=== PATIENT | male | born 1985 | race Caucasian/White ===

== ENCOUNTER 2018-02-09 10:41 | Day surgery (SDC) | payer MEDICAID, SELFPAY ==
[2018-02-09] VITALS (9 sets, daily range): BP systolic 102–133; BP diastolic 64–86; PULSE 54–74; RESP 11–16; TEMP 36.3–37.6; O2SAT 95–100
[2018-02-09] MEDS: Lactated Ringers 1,000 ML 30 ML IV (11:46)
[2018-02-09] MEDS: CLINDAMYCIN 900 MG/50 ML BAG 50 MG IVPB (11:54)
--- NOTE | 2018-02-09 15:04 | SOFT_PTH ---
PATIENT: Malik Hoover LOC: [facility] U#:[id number] AGE/SX: 33/M ROOM: RE02/09/[address]: Conrado Alston DO : 1985 BED: DIS: 02/09/2018 SPEC #: [id number] RECD: 02/09/18 17:41 STATUS: ARAVIND REQ #: [id number] NILAY: 02/09/18 15:[address]: Conrado Alston DEPT: Surgical Specimen RECD BY: Amy Garcia ENTERED: 02/09/18 17:42 SP TYPE: SOFT OTHR DR: Phil Flores Tissues: 1 - SOFT TISSUE [facility] Procedures: GROSS AND MICRO LEVEL 3 Comments: [id number]
[2018-02-09] MEDS: Bupivacaine 0.25% Pres-Free 30 ML VIAL (15:22)
--- NOTE | 2018-02-09 15:45 | W.PM.DSUDISC ---
Discharge Plan Disposition Patient Disposition: HOME Condition: Good Discharge Details Reason For Visit: (R) INGUINAL HERNIA Attending Provider: Conrado Alston Primary Care Provider: Phil Flores Home Meds and New Rx's Prescriptions: New tramadol 50 mg Tablet 100 mg PO Q6H PRN PRNQty: 12 RF: 0 ibuprofen 200 mg capsule 600 mg PO QID PRN (Reason: inguinal hernia repair) Qty: 30 RF: 0 Continue cyclobenzaprine 10 mg tablet 10 mg PO TID RF: 0 omeprazole 20 mg capsule,delayed release(DR/EC) 20 mg PO DAILY PRNRF: 0 acetaminophen [Tylenol Extra Strength] 500 mg Tablet 500 mg PO Q6H PRNRF: 0 Discharge Instructions Instructions: Inguinal Hernia Repair (DC) Additional Instructions: Dr. Conrado Alston Post-Operative Discharge Instructions 1. Because there will be medication in your system for the next 24 hours, you may feel a little sleepy. Your coordination will be affected. Therefore: Do not drive or operate dangerous equipment for 24 hours. Do not drink alcohol beverages for 24 hours (not even beer). Plan to go home and rest for the day. Restrictions: Do not lift over 20lbs for 6weeks. No strenuous bending or twisting for 6weeks, if it hurts stop. No baths, you can shower. Let warm soapy water run over wound, then pat wound dry. Activity: The day of surgery spend most of the day resting in a comfortable bed or recliner. 2-3 times during the day get up and walk around the house. The day after surgery, or after your discharge, walk at least 3 times a day and spend increasing amounts of time walking and sitting up. If you are tired rest, but keep moving as able. Continue Incentive Spirometry at home if you were performing this therapy in the hospital. Diet: Resume home diet as tolerated. Start with a light diet, your appetite will improve with time. Drink at least 4-6 glasses of water per day to keep hydrated. Wound Care: Skin glue will wear off with time. You may cover the wound with a dry sterile dressing to keep clothing from rubbing against the wound. Call for appointment . Continue all your regular medications unless directed otherwise. Call the office or the Hospital Check Services Clerk , If you have: Pain not controlled with pain medication. Nausea and vomiting. Temperature greater than 101 degrees Fahrenheit. Drainage from your wound that soaks through your dressing. *No more than 4000 milligrams of Tylenol in 24 hours. Narcotic pain medication can be constipating, if you have not had a bowel movement within 3 days use a laxative, I recommend Milk of Magnesia (MOM) 1oz. every 6 hrs until you have a bowel movement. I understand the above instructions and have no questions. Signature of Patient or Responsible Adult Escort Date/Time Name of Responsible Adult Escort Signature of Nurse Date/Time Revised 08/12/10 Referrals: Conrado Alston DO [ [facility] STAFF PHYSICIAN] - 02/24/18 10:00 am (Follow up after inguinal hernia repair) Activity:: see instructions Remove Dressings/Wound Care:: Do Not Remove Shower/Bathe:: 24 hours Activity:: see instructions Equipment/Supplies:: No Equipment Needed Diet:: As Tolerated Discharge Orders Discharge Orders: Discharge Order (Routine); Ordered 02/09/18 Ordered By: Conrado Alston DS: Diagnosis Discharge Diagnosis (1) Right inguinal hernia: Status: Acute
--- NOTE | 2018-02-09 15:46 | PDOC.DSDIS_ITS ---
Discharge Plan Disposition Patient Disposition: HOME Condition: Good Discharge Details Reason For Visit: (R) INGUINAL HERNIA Attending Provider: Conrado Alston Primary Care Provider: Phil Flores Home Meds and New Rx's Prescriptions: New tramadol 50 mg Tablet 100 mg PO Q6H PRN PRNQty: 12 RF: 0 ibuprofen 200 mg capsule 600 mg PO QID PRN (Reason: inguinal hernia repair) Qty: 30 RF: 0 Continue cyclobenzaprine 10 mg tablet 10 mg PO TID RF: 0 omeprazole 20 mg capsule,delayed release(DR/EC) 20 mg PO DAILY PRNRF: 0 acetaminophen [Tylenol Extra Strength] 500 mg Tablet 500 mg PO Q6H PRNRF: 0 Discharge Instructions Instructions: Inguinal Hernia Repair (DC) Additional Instructions: Dr. Conrado Alston Post-Operative Discharge Instructions 1. Because there will be medication in your system for the next 24 hours, you may feel a little sleepy. Your coordination will be affected. Therefore: * Do not drive or operate dangerous equipment for 24 hours. * Do not drink alcohol beverages for 24 hours (not even beer). * Plan to go home and rest for the day. Restrictions: * Do not lift over 20lbs for 6weeks. * No strenuous bending or twisting for 6weeks, if it hurts stop. * No baths, you can shower. Let warm soapy water run over wound, then pat wound dry. Activity: * The day of surgery spend most of the day resting in a comfortable bed or recliner. 2-3 times during the day get up and walk around the house. * The day after surgery, or after your discharge, walk at least 3 times a day and spend increasing amounts of time walking and sitting up. If you are tired rest, but keep moving as able. * Continue Incentive Spirometry at home if you were performing this therapy in the hospital. Diet: * Resume home diet as tolerated. * Start with a light diet, your appetite will improve with time. * Drink at least 4-6 glasses of water per day to keep hydrated. Wound Care: * Skin glue will wear off with time. * You may cover the wound with a dry sterile dressing to keep clothing from rubbing against the wound. Call for appointment . Continue all your regular medications unless directed otherwise. Call the office or the Hospital Ultrasound Applications Specialist , If you have: * Pain not controlled with pain medication. * Nausea and vomiting. * Temperature greater than 101 degrees Fahrenheit. * Drainage from your wound that soaks through your dressing. *No more than 4000 milligrams of Tylenol in 24 hours. Narcotic pain medication can be constipating, if you have not had a bowel movement within 3 days use a laxative, I recommend Milk of Magnesia (MOM) 1oz. every 6 hrs until you have a bowel movement. I understand the above instructions and have no questions. _ Signature of Patient or Responsible Adult Escort Date/Time _ Name of Responsible Adult Escort _ Signature of Nurse Date/Time Revised 08/12/10 Referrals: Conrado Alston DO [ [facility] STAFF PHYSICIAN] - 02/24/18 10:00 am (Follow up after inguinal hernia repair) Activity:: see instructions Remove Dressings/Wound Care:: Do Not Remove Shower/Bathe:: 24 hours Activity:: see instructions Equipment/Supplies:: No Equipment Needed Diet:: As Tolerated Discharge Orders Discharge Orders: Discharge Order (Routine); Ordered 02/09/18 Ordered By: Conrado Alston DS: Diagnosis Discharge Diagnosis (1) Right inguinal hernia: Status: Acute
--- NOTE | 2018-02-09 15:46 | W.PM.OP ---
Date of service: 02/09/18 Time of Service: 15:46 Operative Note DATE OF PROCEDURE: 02/09/18 PRE-OP DIAGNOSIS: Right inguinal hernia without obstruction or gangrene POST-OP DIAGNOSIS: other (Right indirect inguinal hernia) PROCEDURE: Open inguinal hernia repair with mesh SURGEON: Conrado Alston AUTOMATION MACHINE OPERATOR: Prashant Todd ANESTHESIA: GETA (Lisa Lira CRNA; ASA 3 Mallampati class II) and local (1% lidocaine mixed with quarter percent Marcaine plain) ESTIMATED BLOOD LOSS: 25 PATHOLOGY: other (Cord lipoma) COMPLICATIONS: None Patient was transported to: PACU Patient's condition: stable Implants: [employer] 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 He describes 3 weeks ago he was doing some heavy lifting and moving in his yard, afterward he felt significant groin discomfort pain and later that night felt a popping sound in his right groin after which she has had continued right groin discomfort. The pain is worse with strenuous exercise, or strenuous bending or twisting. He has tried ibuprofen with some relief. Physical exam is consistent with right inguinal hernia. It was recommended he undergo open repair of this right inguinal hernia. The procedure was discussed with him, and the risks discussed. These include but are not limited to: Bleeding, infection, testicular atrophy, chronic inguinal neuralgia, spermatic cord injury, and recurrence of hernia. All his questions were answered to his satisfaction consent was obtained to proceed with a right inguinal hernia repair with mesh. Findings: Exploring the right inguinal canal the patient was noted to have a large cord lipoma with a indirect hernia defect. This was subsequently repaired with mesh, and the lipoma was sent for pathology Procedure Description: The patient was brought to the operating room. A time-out was completed verifying correct patient , procedure, site , allergies, medications, positioning, implants, and fire risk, prior to beginning the procedure. General anesthesia was induced. The right groin was prepped with chloraprep, and draped in the standard sterile fashion. The pubic tubercle, and anterior superior iliac spine (ASIS) were marked. A skin incision was marked starting just laterally to the pubic tubercle in a linear oblique fashion toward the ASIS. A field block was produced by injecting local along the proposed skin incision. Additional local anesthesia was injected during the procedure under the external oblique aponeurosisto , just medial to the ASIS, to block the ilioinguinal nerve. Addition local was injected as needed during the case. I began by incising the previously marked incision line with a scalpel. The incision was deepened though Ivon's and Camper's fascia with electocautery down until the aponeurosis of the external oblique was encountered. This was cleaned and the external ring exposed. Hemostasis was obtained in the wound with cautery. A stab incision was made in the midportion of the external oblique aponeurosis in the parallel to the fibers. Flaps of the external oblique were developed cephalad, and inferiorly. The cord was identified, gently dissected at the pubic tubercle, and encircled with a jose drain, The cord was then explored, the vas deferens, and testicular vesicles were protected a large cord lipoma was found but no indirect or direct hernia sac was identified. The internal ring was dilated from the cord lipoma, and I suspect that there was a indirect hernia sac associated w the cord lipoma that reduced. The cord lipoma was suture ligated at the level of the internal ring. The femoral canal was palpated and no hernia was identified. I then placed a mesh, Prograf anatomic right lot number [id number] to re-enforce the floor of the inguinal canal, and create a new internal ring. The floor of the inguinal canal was cleaned medially over the pubic tubercle, cephalad over the conjoint tendon, laterally over the aponeurosis of the internal oblique, and inferiorly the inguinal ligament. A mesh was then laid in the floor of the canal with the mesh overlying the pubic tubercle medially, conjoint tendon cephalad, internal oblique aponeurosis laterally, and shelving edge of inguinal ligament inferiorly. The mesh was then inspected for apposition to the tissue, and pressed into place. The tip of a Debakey forceps easily passed through the new internal ring next the cord structures. The wound was then irrigated. Hemostasis again checked, and jose drain removed. I closed the wound in layers, with 2-0 vicryl for the external oblique in a running fashion, 3-0 vicryl to approximate Ivon's fascia, and the skin was closed with 4-0 vicryl with a running subcuticular fashion. Local was infiltrated around the wound edges. A dressing was applied. The count was reported correct times two. No apparent complications during the case. The patient was brought to the PACU in good condition, after being extubated in the operating room
--- NOTE | 2018-02-09 15:49 | ROE_ITS ---
Date of service: 02/09/18 Time of Service: 15:46 Operative Note DATE OF PROCEDURE: 02/09/18 PRE-OP DIAGNOSIS: Right inguinal hernia without obstruction or gangrene POST-OP DIAGNOSIS: other (Right indirect inguinal hernia) PROCEDURE: Open inguinal hernia repair with mesh SURGEON: Conrado Alston MOTOR TEACHER: Prashant Todd ANESTHESIA: GETA (Lisa Lira CRNA; ASA 3 Mallampati class II) and local (1% lidocaine mixed with quarter percent Marcaine plain) ESTIMATED BLOOD LOSS: 25 PATHOLOGY: other (Cord lipoma) COMPLICATIONS: None Patient was transported to: PACU Patient's condition: stable Implants: [employer] 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 He describes 3 weeks ago he was doing some heavy lifting and moving in his yard, afterward he felt significant groin discomfort pain and later that night felt a popping sound in his right groin after which she has had continued right groin discomfort. The pain is worse with strenuous exercise, or strenuous bending or twisting. He has tried ibuprofen with some relief. Physical exam is consistent with right inguinal hernia. It was recommended he undergo open repair of this right inguinal hernia. The procedure was discussed with him, and the risks discussed. These include but are not limited to: Bleeding, infection, testicular atrophy, chronic inguinal neuralgia, spermatic cord injury, and recurrence of hernia. All his questions were answered to his satisfaction consent was obtained to proceed with a right inguinal hernia repair with mesh. Findings: Exploring the right inguinal canal the patient was noted to have a large cord lipoma with a indirect hernia defect. This was subsequently repaired with mesh , and the lipoma was sent for pathology Procedure Description: The patient was brought to the operating room. A time-out was completed verifying correct patient , procedure, site , allergies, medications, positioning, implants, and fire risk, prior to beginning the procedure. General anesthesia was induced. The right groin was prepped with chloraprep, and draped in the standard sterile fashion. The pubic tubercle, and anterior superior iliac spine (ASIS) were marked. A skin incision was marked starting just laterally to the pubic tubercle in a linear oblique fashion toward the ASIS. A field block was produced by injecting local along the proposed skin incision. Additional local anesthesia was injected during the procedure under the external oblique aponeurosisto , just medial to the ASIS, to block the ilioinguinal nerve. Addition local was injected as needed during the case. I began by incising the previously marked incision line with a scalpel. The incision was deepened though Ivon's and Camper's fascia with electocautery down until the aponeurosis of the external oblique was encountered. This was cleaned and the external ring exposed. Hemostasis was obtained in the wound with cautery. A stab incision was made in the midportion of the external oblique aponeurosis in the parallel to the fibers. Flaps of the external oblique were developed cephalad, and inferiorly. The cord was identified, gently dissected at the pubic tubercle, and encircled with a jose drain, The cord was then explored, the vas deferens, and testicular vesicles were protected a large cord lipoma was found but no indirect or direct hernia sac was identified. The internal ring was dilated from the cord lipoma, and I suspect that there was a indirect hernia sac associated w the cord lipoma that reduced. The cord lipoma was suture ligated at the level of the internal ring. The femoral canal was palpated and no hernia was identified. I then placed a mesh, Prograf anatomic right lot number [id number] to re-enforce the floor of the inguinal canal, and create a new internal ring. The floor of the inguinal canal was cleaned medially over the pubic tubercle, cephalad over the conjoint tendon, laterally over the aponeurosis of the internal oblique, and inferiorly the inguinal ligament. A mesh was then laid in the floor of the canal with the mesh overlying the pubic tubercle medially, conjoint tendon cephalad, internal oblique aponeurosis laterally, and shelving edge of inguinal ligament inferiorly. The mesh was then inspected for apposition to the tissue, and pressed into place. The tip of a Debakey forceps easily passed through the new internal ring next the cord structures. The wound was then irrigated. Hemostasis again checked, and jose drain removed. I closed the wound in layers, with 2-0 vicryl for the external oblique in a running fashion, 3-0 vicryl to approximate Ivon's fascia, and the skin was closed with 4-0 vicryl with a running subcuticular fashion. Local was infiltrated around the wound edges. A dressing was applied. The count was reported correct times two. No apparent complications during the case. The patient was brought to the PACU in good condition, after being extubated in the operating room
[2018-02-09] MEDS: HYDROmorphone 2 MG/ML VIAL IVP (16:35)
[2018-02-09] MEDS: Lactated Ringers 1,000 ML 80 ML IV (17:10)
== END 2018-02-09 18:27 | disposition home or self-care (01) ==
PROVIDERS: PCP Internal Medicine; Visit Provider Surgery
PROC: (CPT 49505; principal; 2018-02-09 12:45)
DX: K40.90 Unilateral inguinal hernia, without obstruction or gangrene, not specified as recurrent (principal); K21.9 Gastro-esophageal reflux disease without esophagitis; G47.33 Obstructive sleep apnea (adult) (pediatric)
CPT/HCPCS: 49505; 88300; 88304; C1781; J0131; J1100; J1885; J2250; J2405

== ENCOUNTER 2018-09-03 10:19 | Emergency (ER) | payer MEDICAID, SELFPAY ==
[2018-09-03 10:23] VITALS: BP 122/77; PULSE 67; RESP 20; TEMP 36.6; O2SAT 95
--- NOTE | 2018-09-03 10:37 | DI.CT_ITS ---
SYMPTOM/DIAGNOSIS: RT FLANK PAIN RENAL COLIC CT: A noncontrast examination of the abdomen and pelvis was performed. There are no prior comparison exams. No hydronephrosis or urinary tract calculi are seen. The urinary bladder is empty. The visualized portions of the liver and spleen are unremarkable. The pancreas, adrenals and gallbladder are unremarkable. The appendix appears normal. There is no bowel dilatation or inflammatory change. There is no free air, free fluid, mass or adenopathy. 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 There is slight L 5-S 1 spondylolisthesis as well as mild bulging of the L 4-5 and L 5-S 1 discs. IMPRESSION: No evidence of urinary tract calculi or other acute abnormality.
--- NOTE | 2018-09-03 10:38 | W.ED.GENAD ---
Discharge Plan Disposition Patient Disposition: HOME Condition: Stable Discharge Details Chief Complaint: FlankPain Clinical Impression: Right flank pain Primary Care Provider: Phil Flores ED Provider: John Duncan Home Meds and New Rx's Prescriptions: Continued cyclobenzaprine 10 mg tablet 10 mg PO TID PRNRF: 0 cbd oil PO/SL RF: 0 acetaminophen [Tylenol Extra Strength] 500 mg Tablet 500 mg PO Q6H PRNRF: 0 ibuprofen 200 mg capsule 600 mg PO QID PRN (Reason: inguinal hernia repair) Qty: 30 RF: 0 Discharge Instructions Instructions: Flank Pain (ED) Medical Decision Making 33 yo male with hx of kidney stones comes in with several days of intermittent mild right lower back/cva area pain. Denies any falls, vomit, fevers, chest pain or sob. HAs no cva tenderness on exam or abdominal tenderness. No scrotal pain or swelling. He leaves for [place] on Thursday and was concerned he may have another kidney stone so came here. Pain seems more musuloskeltal in nautre but given his concern will obtain cT. Has no saddle anesthesia, fevers, no ivdu, no findings to suggest cauda equina or sea at this time pt remains stable, labs and imaging per Dr. jang unremarkable. Suspect back strain, will d/c home and return precautions given Differential Diagnosis kidney stone, uti, back strain Medical Records Medical records reviewed: Yes I reviewed the patient's medical records. Imaging Data Radiologic Study: Attestation: I personally reviewed and interpreted this imaging study as follows: Imaging: CT Scan Radiologist's impression: per dr. jang no acute findings Lab Data Lab results reviewed: Yes I reviewed the patient's lab results. HPI General Mode of arrival: ambulatory. Date/Time Provider Initiated Documentation: 09/03/18 10:22. Limitations to Documentation: no limitations. Information obtained by: patient. History of Present Illness 33 year old M presents to the emergency department with the chief complaint of right flank pain, described as moderate, Quality is described as stabbing and aching, Patient started experiencing this day(s) (3) and it has been intermittent. No relieving factors improve symptom(s), No exacerbating factors reported . Patient did receive the following treatments prior to arrival, none Related Data Home Medications Medication Instructions Recorded Confirmed acetaminophen [Tylenol Extra 500 mg PO Q6H PRN 02/08/18 09/03/18 Strength] ibuprofen 600 mg PO QID PRN #30 cap 02/09/18 09/03/18 cbd oil PO/SL 05/14/18 09/03/18 cyclobenzaprine 10 mg tablet 10 mg PO TID PRN 05/14/18 09/03/18 Previous Rx's Medication Instructions Recorded ibuprofen 600 mg PO QID PRN #30 cap 02/09/18 Allergies Allergy/AdvReac Type Severity Reaction Status Date / Time amlodipine Allergy Intermediate Verified 09/03/18 10:25 cephalexin Allergy Intermediate Verified 09/03/18 10:25 diltiazem Allergy Intermediate Verified 09/03/18 10:25 diphtheria,pertussis Allergy Intermediate Verified 09/03/18 10:25 (acellular),te [From Adacel(Tdap Adolesn/Adult)(PF)] penicillin V Allergy Intermediate Verified 09/03/18 10:25 Sulfa (Sulfonamide Allergy Intermediate Verified 09/03/18 10:25 Antibiotics) General Stated Complaint: FlankPain MELVIN: 3 Review of Systems Review of Systems All systems reviewed & are unremarkable except as noted in HPI and below Constitutional Denies chills, Denies fever(s) and Denies weakness Cardiovascular Denies chest pain and Denies dyspnea Respiratory Denies cough and Denies dyspnea Gastrointestinal Denies vomiting Genitourinary Denies dysuria Neurologic Denies weakness [facility] Social History Smoking/Tobacco Use Status: Former Tobacco Use Alcohol Intake: current Alcohol Intake frequency: holidays/special occasions only Drug use: Never Substance use type: does not use Do you feel safe at home: Yes Do you feel safe in your relationship?: Yes Exam Const General: no acute distress Orientation: alert HENMT Head: normal to inspection Ears: external ears normal General nose exam: external nose normal Mouth: moist mucous membranes Eyes General: appearance normal, both eyes and all related structures Neck Neck: normal visual inspection Resp Effort & Inspection: normal respiratory effort and able to speak in complete sentences Cardio Rate: regular rate Skin General skin exam: no rashes or lesions noted Neuro General: alert and oriented x3 Extrem General: normal to inspection Psych Mental Status: mental status grossly normal Course Vital Signs Temperature 36.6 C 09/03/18 10:23 Pulse 67 09/03/18 10:23 Respiratory Rate 20 09/03/18 10:23 Blood Pressure 122/77 09/03/18 10:23 Pulse Oximetry 95 09/03/18 10:23 Temperature 36.6 C 09/03/18 10:23 Temperature Source Skin 09/03/18 10:23 Pulse 67 09/03/18 10:23 Respiratory Rate 20 09/03/18 10:23 Respiratory Effort Non-Labored 09/03/18 10:25 Blood Pressure 122/77 09/03/18 10:23 Blood Pressure Position Sitting 09/03/18 10:23 Pulse Oximetry 95 09/03/18 10:23 Oxygen Delivery Method Room Air 09/03/18 10:23 Oxygen Flow Rate 0 09/03/18 10:23 Pain Level 1 09/03/18 10:23
[2018-09-03 10:41] LABS: Bilirubin Negative (Negative); Blood Negative (Negative); Clarity Sl Cloudy; Glucose Negative (Negative); Ketones Negative (Negative); Leukocyte Esterase Negative (Negative); Nitrite Negative (Negative); Urobilinogen 0.2 EU/dL (Up TO 0.2)
--- NOTE | 2018-09-03 10:41 | ED.GENADUL_ITS ---
Discharge Plan Disposition Patient Disposition: HOME Condition: Stable Discharge Details Chief Complaint: FlankPain Clinical Impression: Right flank pain Primary Care Provider: Phil Flores ED Provider: John Duncan Home Meds and New Rx's Prescriptions: Continued cyclobenzaprine 10 mg tablet 10 mg PO TID PRNRF: 0 cbd oil PO/SL RF: 0 acetaminophen [Tylenol Extra Strength] 500 mg Tablet 500 mg PO Q6H PRNRF: 0 ibuprofen 200 mg capsule 600 mg PO QID PRN (Reason: inguinal hernia repair) Qty: 30 RF: 0 Discharge Instructions Instructions: Flank Pain (ED) Medical Decision Making 33 yo male with hx of kidney stones comes in with several days of intermittent mild right lower back/cva area pain. Denies any falls, vomit, fevers, chest pain or sob. HAs no cva tenderness on exam or abdominal tenderness. No scrotal pain or swelling. He leaves for [place] on Thursday and was concerned he may have another kidney stone so came here. Pain seems more musuloskeltal in nautre but given his concern will obtain cT. Has no saddle anesthesia, fevers, no ivdu, no findings to suggest cauda equina or sea at this time pt remains stable, labs and imaging per Dr. jang unremarkable. Suspect back strain, will d/c home and return precautions given Differential Diagnosis kidney stone, uti, back strain Medical Records Medical records reviewed: Yes I reviewed the patient's medical records. Imaging Data Radiologic Study: Attestation: I personally reviewed and interpreted this imaging study as follows: Imaging: CT Scan Radiologist's impression: per dr. jang no acute findings Lab Data Lab results reviewed: Yes I reviewed the patient's lab results. HPI General Mode of arrival: ambulatory . Date/Time Provider Initiated Documentation: 09/03/18 10:22 . Limitations to Documentation: no limitations . Information obtained by: patient . History of Present Illness 33 year old M presents to the emergency department with the chief complaint of right flank pain, described as moderate, Quality is described as stabbing and aching, Patient started experiencing this day(s) (3) and it has been intermittent. No relieving factors improve symptom(s), No exacerbating factors reported . Patient did receive the following treatments prior to arrival, none Related Data Home Medications Medication Instructions Recorded Confirmed acetaminophen [Tylenol Extra 500 mg PO Q6H PRN 02/08/18 09/03/18 Strength] ibuprofen 600 mg PO QID PRN #30 cap 02/09/18 09/03/18 cbd oil PO/SL 05/14/18 09/03/18 cyclobenzaprine 10 mg tablet 10 mg PO TID PRN 05/14/18 09/03/18 Previous Rx's Medication Instructions Recorded ibuprofen 600 mg PO QID PRN #30 cap 02/09/18 Allergies Allergy/AdvReac Type Severity Reaction Status Date / Time amlodipine Allergy Intermediate Verified 09/03/18 10:25 cephalexin Allergy Intermediate Verified 09/03/18 10:25 diltiazem Allergy Intermediate Verified 09/03/18 10:25 diphtheria,pertussis Allergy Intermediate Verified 09/03/18 10:25 (acellular),te [From Adacel(Tdap Adolesn/Adult)(PF)] penicillin V Allergy Intermediate Verified 09/03/18 10:25 Sulfa (Sulfonamide Allergy Intermediate Verified 09/03/18 10:25 Antibiotics) General Stated Complaint: FlankPain MELVIN: 3 Review of Systems Review of Systems All systems reviewed & are unremarkable except as noted in HPI and below Constitutional Denies chills, Denies fever(s) and Denies weakness Cardiovascular Denies chest pain and Denies dyspnea Respiratory Denies cough and Denies dyspnea Gastrointestinal Denies vomiting Genitourinary Denies dysuria Neurologic Denies weakness [facility] Social History Smoking/Tobacco Use Status: Former Tobacco Use Alcohol Intake: current Alcohol Intake frequency: holidays/special occasions only Drug use: Never Substance use type: does not use Do you feel safe at home: Yes Do you feel safe in your relationship?: Yes Exam Const General: no acute distress Orientation: alert HENMT Head: normal to inspection Ears: external ears normal General nose exam: external nose normal Mouth: moist mucous membranes Eyes General: appearance normal, both eyes and all related structures Neck Neck: normal visual inspection Resp Effort & Inspection: normal respiratory effort and able to speak in complete sentences Cardio Rate: regular rate Skin General skin exam: no rashes or lesions noted Neuro General: alert and oriented x3 Extrem General: normal to inspection Psych Mental Status: mental status grossly normal Course Vital Signs Temperature 36.6 C 09/03/18 10:23 Pulse 67 09/03/18 10:23 Respiratory Rate 20 09/03/18 10:23 Blood Pressure 122/77 09/03/18 10:23 Pulse Oximetry 95 09/03/18 10:23 Temperature 36.6 C 09/03/18 10:23 Temperature Source Skin 09/03/18 10:23 Pulse 67 09/03/18 10:23 Respiratory Rate 20 09/03/18 10:23 Respiratory Effort Non-Labored 09/03/18 10:25 Blood Pressure 122/77 09/03/18 10:23 Blood Pressure Position Sitting 09/03/18 10:23 Pulse Oximetry 95 09/03/18 10:23 Oxygen Delivery Method Room Air 09/03/18 10:23 Oxygen Flow Rate 0 09/03/18 10:23 Pain Level 1 09/03/18 10:23
[2018-09-03 10:51] LABS: Abs Immature Grans 0.02 k/cumm (0.0-0.09); Absolute Basophil Count 0.05 k/cumm (0.0-0.2); Absolute Eosinophil Count 0.12 k/cumm (0.0-0.7); Absolute Monocyte Count 0.57 k/cumm (0.11-0.7); Absolute Neutrophil Count 6.57 k/cumm (1.2-6.7); Basophils % 0.5; Eosinophils % 1.3; HCT 49.4 % (40.0-50.0); HGB 16.8 g/dL (13.5-17.5); Immature Grans % 0.2; Lymphocytes % 19.7; Mean Corpuscular Hemoglobin 29.5 pg (27.0-33.0); Mean Corpuscular Volume 86.7 fL (80-95); Mean Platelet Volume 9.4 fL (8.0-11.0); Monocytes % 6.2; Neutrophils % 72.1; Platelet Count 236 x1000/uL (130-400); RBC Distribution Width 13.5 % (11.8-14.1); White Blood Cell Count 9.13 k/cumm (4.4-10.8)
[2018-09-03 10:54] LABS: Bacteria Negative HPF (Negative); Casts Negative LPF (Negative); Crystals Many Amorphous HPF (Negative); Epithelial Cells Negative HPF (Negative); Mucus Negative (Negative); RBC 0-2 (0-2); WBC Negative HPF (0-5)
[2018-09-03 10:55] LABS: C & S Indicated? No
[2018-09-03 11:10] VITALS: BP 130/92; PULSE 70; RESP 18; TEMP 36.7; O2SAT 94
[2018-09-03 11:10] LABS: ALT 40 U/L (12-78); AST 22 U/L (15-37); Albumin 4.3 g/dL (3.4-5.0); Alkaline Phosphatase 82 U/L (46-116); BUN 18 mg/dL (7-18); Bilirubin, Total 0.6 mg/dL (0.2-1.0); CREATININE 1.35 mg/dL (0.70-1.30); Calcium 9.3 mg/dL (8.5-10.1); Chloride 102 mmol/L (98-107); Glucose 93 mg/dL (70-100); Lipase 169 U/L (73-393); Potassium 3.6 mmol/L (3.5-5.1); Sodium 140 mmol/L (136-145); Total Protein 8.1 g/dL (6.4-8.2)
== END 2018-09-03 11:15 | disposition home or self-care (01) ==
PROVIDERS: Emergency Provider Emergency Medicine; PCP Internal Medicine
DX: R10.9 Unspecified abdominal pain (principal); Z87.442 Personal history of urinary calculi
CPT/HCPCS: 36415; 80053; 83690; 99284; 74176; 81003; 81015; 85025

== ENCOUNTER 2019-01-10 14:11 | Outpatient (REF) | payer MEDICAID, SELFPAY ==
[2019-01-10 20:29] LABS: Uric Acid 6.8 mg/dL (3.5-7.2)
== END 2019-01-10 14:31 ==
LOC: NCHCN 14:11
PROVIDERS: PCP Internal Medicine; Visit Provider Nurse Practitioner Family
DX: M25.531 Pain in right wrist (principal)
CPT/HCPCS: 84550

== ENCOUNTER 2020-06-15 14:41 | Outpatient (REF) | payer MEDICAID, SELFPAY ==
[2020-06-17 16:35] LABS: COVID-19 RT-PCR UVMMC Result Negative (Negative)
== END 2020-06-15 14:42 | disposition home or self-care (01) ==
LOC: NCHCN 14:41
PROVIDERS: PCP Internal Medicine; Visit Provider Internal Medicine
DX: Z20.822 Contact with and (suspected) exposure to COVID-19 (principal); J06.9 Acute upper respiratory infection, unspecified
CPT/HCPCS: U0003

== ENCOUNTER 2020-07-19 17:10 | Emergency (ER) | payer MEDICAID, SELFPAY ==
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
[2020-07-19 17:34] VITALS: BP 149/99; PULSE 97; RESP 16; TEMP 36.8; O2SAT 95
[2020-07-19 17:36] VITALS: RESP 16
[2020-07-19] MEDS: Clindamycin 150 MG CAP 450 MG PO (18:06)
[2020-07-19] MEDS: Clindamycin 150 MG CAP, 12 CAPS/BTL 450 MG PO (18:07)
== END 2020-07-19 18:12 | disposition home or self-care (01) ==
PROVIDERS: Emergency Provider Physician Assistant; PCP Internal Medicine
DX: L03.313 Cellulitis of chest wall (principal); L81.8 Other specified disorders of pigmentation
CPT/HCPCS: 99283

== ENCOUNTER 2020-07-25 09:55 | Outpatient (REF) | payer MEDICAID, SELFPAY ==
[2020-07-27 16:18] LABS: COVID-19 RT-PCR UVMMC Result Negative (Negative)
== END 2020-07-25 09:56 | disposition home or self-care (01) ==
LOC: NCHCN 09:55
PROVIDERS: PCP Internal Medicine; Visit Provider Nurse Practitioner Family
DX: Z20.822 Contact with and (suspected) exposure to COVID-19 (principal)
CPT/HCPCS: U0003

== ENCOUNTER 2020-08-02 16:23 | Outpatient (REF) | payer MEDICAID, SELFPAY ==
[2020-08-03 11:49] LABS: COVID-19 RT-PCR UVMMC Result Positive (Negative)
== END 2020-08-02 16:24 | disposition home or self-care (01) ==
LOC: NCHCN 16:23
PROVIDERS: PCP Internal Medicine; Visit Provider Nurse Practitioner Family
DX: Z20.822 Contact with and (suspected) exposure to COVID-19 (principal)
CPT/HCPCS: U0003

== ENCOUNTER 2022-03-20 13:53 | Outpatient (REF) | payer MEDICAID, SELFPAY ==
[2022-03-20 19:15] LABS: Bilirubin Negative (Negative); Blood Trace-lysed (Negative); Clarity Clear (Clear); Glucose Negative (Negative); Ketones Negative (Negative); Leukocyte Esterase Negative (Negative); Nitrite Negative (Negative); Specific Gravity >= 1.030 (1.005-1.025); Urobilinogen 0.2 EU/dL (Up TO 0.2); pH 6.5 (5-8)
[2022-03-20 19:31] LABS: Bacteria Rare HPF (Negative); C & S Indicated? No; Crystals Negative HPF (Negative); Epithelial Cells Rare HPF (Negative); Mucus Negative (Negative); RBC 0-2 HPF (0-2); WBC 0-2 HPF (0-5)
== END 2022-03-20 13:54 | disposition home or self-care (01) ==
LOC: NCHCN 13:53
PROVIDERS: PCP Internal Medicine; Visit Provider Nurse Practitioner Family
DX: R31.9 Hematuria, unspecified (principal); N50.9 Disorder of male genital organs, unspecified
CPT/HCPCS: 81003; 81015

== ENCOUNTER → 2022-03-24 16:16 | Outpatient (CLI) | payer MEDICAID, SELFPAY ==
--- NOTE | 2022-03-24 | DI.US_ITS ---
Exam(s) US SCROTUM EXAM: US SCROTUM CLINICAL HISTORY: TESTICULAR DISORDER, N50.9, SWELLING RT TESTICLE. TECHNIQUE: Scrotal ultrasound performed using grayscale, color-flow and spectral Doppler analysis. COMPARISON: No exams were available for comparison FINDINGS: Right testicle: 4.5 x 2 x 3 cm Left testicle: 3.5 x 2.4 x 2.5 cm Echogenicity: Normal. Contour: Smooth. Mass: None seen. Microlithiasis: There are a few adjacent calcifications in the left testicle. Hydrocele: None. Variocele: None. Hernia: No peristalsing bowel loop identified. Epididymis: 8 x 8 x 11 millimeter right epididymal head cyst with septation. Additional 2 millimeter cyst right epididymal head. DOPPLER: Color: Symmetric and uniform, no hyperemia. Duplex: Bilateral testicular arterial waveforms visualized. IMPRESSION: Cysts in the head of the right epididymis. DATA REPOSITORY:
== END ==
PROVIDERS: PCP Internal Medicine; Visit Provider Nurse Practitioner Family
DX: N50.811 Right testicular pain (principal); N50.89 Other specified disorders of the male genital organs; N50.3 Cyst of epididymis
CPT/HCPCS: 76870

== ENCOUNTER 2022-05-19 14:56 | Outpatient (REF) | payer MEDICAID, SELFPAY ==
[2022-05-20 10:13] LABS: PSA, Screening 0.4 ng/mL (<=2.5)
== END 2022-05-19 14:57 | disposition home or self-care (01) ==
LOC: LBN 14:56
PROVIDERS: PCP Internal Medicine; Visit Provider Nurse Practitioner Gerontology
DX: R36.1 Hematospermia (principal); Z12.5 Encounter for screening for malignant neoplasm of prostate; Z80.42 Family history of malignant neoplasm of prostate
CPT/HCPCS: 84153

== ENCOUNTER 2023-11-30 08:56 | Outpatient (CLI) | payer MEDICAID, SELFPAY ==
--- NOTE | 2023-11-30 08:45 | RT.EKG_ITS ---
APPROVED REPORT Exam: Resting ECG Reason for Exam: chest pain Patient Location: O HR:94 bpm ECG Measurements Heart Rate 94 AXIS DE 153 P 8 QRSd 102 QRS 22 QT 346 T 17 QTc 433 Conclusion Sinus rhythm...normal P axis, V-rate 50- 99 Normal Electrocardiogram
== END 2023-11-30 08:57 | disposition home or self-care (01) ==
LOC: DI.CARD 08:57
PROVIDERS: PCP Nurse Practitioner Family; Visit Provider Internal Medicine Cardiovascular Disease
DX: I20.1 Angina pectoris with documented spasm (principal); R07.9 Chest pain, unspecified
CPT/HCPCS: 93010

== ENCOUNTER 2023-12-08 02:04 | Outpatient (CLI) | payer MEDICAID, SELFPAY ==
[2023-12-08 10:30] LABS: Hemoglobin A1C 5.5 % (<5.7)
[2023-12-08 10:32] LABS: Calculated LDL 130 mg/dL (<100); Cholesterol 206 mg/dL (<200); HDL Cholesterol 44 mg/dL (40-60); Triglyceride 160 mg/dL (<150)
[2023-12-08 19:44] LABS: PSA, Screening 0.4 ng/mL (<=2.5)
== END 2023-12-08 02:05 | disposition home or self-care (01) ==
LOC: LBO 02:04
PROVIDERS: PCP Nurse Practitioner Family; Visit Provider Nurse Practitioner Family
DX: Z00.00 Encounter for general adult medical examination without abnormal findings (principal); Z80.42 Family history of malignant neoplasm of prostate
CPT/HCPCS: 36415; 80061; 84153; 83036

== ENCOUNTER 2023-12-28 02:25 | Emergency (ER) | payer MEDICAID, SELFPAY ==
[2023-12-28] VITALS (42 sets, daily range): BP systolic 94–129; BP diastolic 49–78; PULSE 45–85; RESP 9–27; TEMP 36.1; O2SAT 93–100
--- NOTE | 2023-12-28 02:15 | RT.EKG_ITS ---
APPROVED REPORT Exam: Resting ECG Reason for Exam: chest pain Patient Location: E HR:64 bpm ECG Measurements Heart Rate 64 AXIS NV 183 P 7 QRSd 100 QRS -2 QT 403 T 14 QTc 416 Conclusion Sinus rhythm... V-rate 60- 99 appropriate intervals, no ST segment or T wave abnormalities to suggest occlusive [place]
--- NOTE | 2023-12-28 02:30 | DI.RAD_ITS ---
Exam(s) XR CHEST 2V PA LATERAL EXAM: XR CHEST 2V PA LATERAL CLINICAL HISTORY: chest pain TECHNIQUE: 2D digital imaging was performed. Two views. COMPARISON: No exams were available for comparison FINDINGS: HEART: Normal size. Aorta: Not dilated. PULMONARY VASCULATURE: Normal. MEDIASTINUM: Unremarkable. LUNGS: Clear. PLEURAL SPACE: No pleural effusion or pneumothorax. BONE:Unremarkable for age. SOFT TISSUES: Unremarkable. IMPRESSION: No acute abnormality. DATA REPOSITORY: RADIATION DOSE DELIVERED:
[2023-12-28 02:45] LABS: Abs Immature Grans 0.02 10^3/uL (0.0-0.06); Absolute Basophil Count 0.06 10^3/uL (0.0-0.2); Absolute Eosinophil Count 0.17 10^3/uL (0.0-0.7); Absolute Lymphocyte Count 2.44 10^3/uL (1.2-3.4); Absolute Monocyte Count 0.51 10^3/uL (0.1-0.8); Absolute Neutrophil Count 3.56 10^3/uL (1.2-6.7); Basophils % 0.9 %; Eosinophils % 2.5 %; HCT 45.1 % (40.0-50.0); HGB 14.8 g/dL (13.5-17.5); Immature Grans % 0.3 %; Lymphocytes % 36.1 %; MCH 28.7 pg (27.0-33.0); MCHC 32.8 % (32.0-36.0); MCV 88 fL (80-95); MPV 8.9 fL (8.0-11.0); Monocytes % 7.5 %; Neutrophils % 52.7 %; Platelet Count 212 10^3/uL (130-400); RBC 5.15 10^6/uL (4.36-5.78); RDW 13.3 % (11.8-14.1); RDW-SD 42.9 fL; WBC 6.76 10^3/uL (4.4-10.8)
[2023-12-28 03:03] LABS: ALT 38 U/L (16-63); AST 25 U/L (15-37); Albumin 3.5 g/dL (3.4-5.0); Alkaline Phosphatase 87 U/L (46-116); Anion Gap 6.7 mmol/L (3-11); BUN 18 mg/dL (7-18); Bilirubin, Total 0.44 mg/dL (0.2-1.0); CO2 28.3 mmol/L (21.0-32.0); CREATININE 1.6 mg/dL (0.70-1.30); Calcium 8.9 mg/dL (8.5-10.1); Chloride 103 mmol/L (98-107); Estimated GFR 55.51 (mL/min/1.73m2); Glucose 97 mg/dL (74-106); Lipase 61 U/L (16-77); Magnesium 2.2 mg/dL (1.8-2.4); Potassium 3.4 mmol/L (3.5-5.1); Sodium 138 mmol/L (136-145)
[2023-12-28 03:05] LABS: Troponin I < 4 ng/L (4-76)
--- NOTE | 2023-12-28 03:06 | W.ED.GENAD ---
Discharge Plan Disposition Patient Disposition: Home Condition: Good Discharge Details Clinical Impression: Chest pain, Vasospastic angina Primary Care Provider: Elida Trammell ED Provider: Brittany Stringer Home Meds and New Rx's Prescriptions: Continued acetaminophen [Arthritis Pain Relief (acetam)] 650 mg tablet extended release 1,300 mg PO Q12H PRN (Reason: pain) aspirin [Adult Low Dose Aspirin] 81 mg tablet,delayed release (DR/EC) 81 mg PO DAILY Qty: 90 3RF nitroglycerin [Nitrostat] 0.4 mg tablet, sublingual 0.4 mg sublingual Q5M PRN (Reason: chest pain) Qty: 30 8RF Rx Instructions: do not exceed 3 doses per episode Discharge Instructions Instructions: Chest Pain, Adult ED Additional Instructions: Call your primary care doctor today to schedule an appointment for within the next 3 days to followup on your visit here. Please also call your hand quilter today to schedule an appointment to followup on your visit here. Take your aspirin daily. Return to the emergency department for new or worsening symptoms including new/different/worse chest pain, chest pain that does not go away with home treatment, difficultly breathing, feeling like you are going to pass out, or if you have any other concerns. Referrals: [facility] [Provider Group] Elida Trammell APRN [Primary Care Provider] - [facility] General Mode of arrival: ambulatory. Date/Time Provider Initiated Documentation: 12/28/23 02:29. Limitations to Documentation: no limitations. Information obtained by: patient, family and old records reviewed. HPI Narrative: 38yo M with hx of coronary vasospasm presenting for chest pain. Pain started around 0100, severe at onset, radiating to his left jaw and left arm. Described as sharp/pressure. Not positional. Took one nitro at home which did not help initially and so his partner drove him to the ED. Symptoms have since improved, initially 6/10 in severity now 1/10. No shortness of breath, lightheadedness, or palpitations at any point. This feels different than his prior episodes of vasospasm. Is supposed to be taking a baby aspirin daily but has not been. Otherwise in his usual state of health with no fevers, chills, rash, back pain, abdominal pain, nausea, vomiting, or other concerns. Related Data Home Medications ?Medication ?Instructions ?Recorded ?Confirmed acetaminophen 650 mg 1,300 mg PO Q12H PRN pain 11/20/23 12/28/23 tablet,extended release (Arthritis Pain Relief (acetaminophen) ER) aspirin 81 mg tablet,delayed 81 mg PO DAILY #90 tabs 11/30/23 12/28/23 release (Adult Low Dose Aspirin) nitroglycerin 0.4 mg sublingual 0.4 mg sublingual Q5M PRN chest 11/30/23 12/28/23 tablet (Nitrostat) pain #30 tabs Previous Rx's ?Medication ?Instructions ?Recorded aspirin 81 mg tablet,delayed 81 mg PO DAILY #90 tabs 11/30/23 release (Adult Low Dose Aspirin) nitroglycerin 0.4 mg sublingual 0.4 mg sublingual Q5M PRN chest 11/30/23 tablet (Nitrostat) pain #30 tabs Allergies Allergy/AdvReac Type Severity Reaction Status Date / Time amlodipine Allergy Intermediate Drops Verified 12/28/23 02:39 heart rate cephalexin Allergy Intermediate Nausea and Verified 12/28/23 02:39 vomiting diltiazem Allergy Intermediate Dropped Verified 12/28/23 02:39 heart rate diphtheria,pertussis Allergy Intermediate Nausea and Verified 12/28/23 02:39 (acellular),te (From vomiting Adacel(Tdap Adolesn/Adult)(PF)) penicillin V Allergy Intermediate nausea and Verified 12/28/23 02:39 vomiting Sulfa (Sulfonamide Allergy Intermediate nausea and Verified 12/28/23 02:39 Antibiotics) vomiting General Stated Complaint: Chest Pain MELVIN: 3 Review of Systems Narrative: see HPI Course Vital Signs Vital signs: Vital Signs Temperature 36.1 C L 12/28/23 02:34 Pulse 60 12/28/23 02:34 Respiratory Rate 14 12/28/23 02:34 Blood Pressure 129/71 12/28/23 02:34 Pulse Oximetry 98 12/28/23 02:34 Temperature 36.1 C L 12/28/23 02:34 Temperature Source Temporal Artery Scan 12/28/23 02:34 Pulse 60 12/28/23 02:34 Respiratory Rate 14 12/28/23 02:34 Blood Pressure 129/71 12/28/23 02:34 Blood Pressure Position Sitting 12/28/23 02:34 Pulse Oximetry 98 12/28/23 02:34 Oxygen Delivery Method Room Air 12/28/23 02:34 Oxygen Flow Rate 0 12/28/23 02:34 Pain Level 2 12/28/23 02:34 Lab/Test Results Lab/Test Results: Laboratory Tests Range/Units 12/28/23 02:38 WBC (4.4-10.8) 10^3/uL 6.76 RBC (4.36-5.78) 10^6/uL 5.15 Hgb (13.5-17.5) g/dL 14.8 Hct (40.0-50.0) % 45.1 MCV (80-95) fL 88 MCH (27.0-33.0) pg 28.7 MCHC (32.0-36.0) % 32.8 RDW (11.8-14.1) % 13.3 Plt Count (130-400) 10^3/uL 212 MPV (8.0-11.0) fL 8.9 Immature Gran % % 0.3 Neutrophils % % 52.7 Lymphocytes % % 36.1 Monocytes % % 7.5 Eosinophils % % 2.5 Basophils % % 0.9 Nucleated RBC % (0.0-0.3) % 0.0 Absolute Neutrophils (1.2-6.7) 10^3/uL 3.56 Absolute Lymphocytes (1.2-3.4) 10^3/uL 2.44 Absolute Monocytes (0.1-0.8) 10^3/uL 0.51 Absolute Eosinophils (0.0-0.7) 10^3/uL 0.17 Absolute Basophils (0.0-0.2) 10^3/uL 0.06 Sodium (136-145) mmol/L 138 Potassium (3.5-5.1) mmol/L 3.4 L Chloride (98-107) mmol/L 103 Carbon Dioxide (21.0-32.0) mmol/L 28.3 Anion Gap (3-11) mmol/L 6.7 BUN (7-18) mg/dL 18 Creatinine (0.70-1.30) mg/dL 1.6 H Est GFR (CKD-EPI 2020) (mL/min/1.73m2) 55.51 Glucose (74-106) mg/dL 97 Calcium (8.5-10.1) mg/dL 8.9 Magnesium (1.8-2.4) mg/dL 2.2 Total Bilirubin (0.2-1.0) mg/dL 0.44 AST (15-37) U/L 25 ALT (16-63) U/L 38 Alkaline Phosphatase (46-116) U/L 87 Troponin I High Sens (4-76) ng/L < 4 L Total Protein (6.4-8.2) g/dL 7.0 Albumin (3.4-5.0) g/dL 3.5 Lipase (16-77) U/L 61 Medical Decision Making 38yo M with hx of coronary vasospasm presenting for chest pain. Hx of TX in 2008 after which he reportedly had a clean cardiac cath and was diagnosed with coronary artery vasospasm. Pain started around 0100 while he was at rest, severe at onset, radiating to his left jaw and left arm. Described as sharp/pressure. Took one nitro at home which did not help initially and so his partner drove him to the ED. Symptoms have since improved, initially 6/10 in severity now 04/29. Vital signs reassuring on arrival, well appearing on exam. EKG on arrival NSR, appropriate intervals, no ST segment or T wave abnormalities to suggest occlusive [place]. Given moderately suspicious history will give 324 of ASA now, though with pts history vasospastic angina more likely than ischemic TX. Presentation not suggestive of aortic dissection, coronary artery dissection, myocarditis/pericarditis, esophageal perforation, pulmonary embolism. -CXR independently reviewed; no focal pneumonia or pneumothorax on my view, agree with radiology read below. -Labs reviewed as below, CBC reassuring with no leukocytosis or anemia, CMP with mild hypokalemia at 3.4 (oral repletion ordered) and Cr of 1.[address] [facility] record review, lipase normal (unlikely pancreatitis). Troponin negative x 3 ( HS troponin <4, <4, 4). -Repeat EKG with no dynamic changes. On reassessment he is well appearing with reassuring vital signs, has had no further chest pain while in the ED. HEART score 3, low risk. He reports he has an appointment schedule with his PCP for 12/29; I advised him to keep that appointment and to call his hand quilter as well to schedule a a followup. He was instructed to take his prescribed 81mg ASA daily. Discharged home; discharge instructions and strict return precautions were reviewed with patient who verbalized understanding. All questions were answered and he is in full agreement with the plan. Medical Records Medical records reviewed: Yes I reviewed the patient's medical records. Medical records narrative: Cardiology visit note from November reviewed. Imaging Data Radiologic Study: Imaging: X-Ray Radiologist's impression: IMPRESSION: No acute findings to explain reported symptoms Lab Data Lab results reviewed: Yes I reviewed the patient's lab results. Labs: Laboratory Tests Range/Units 12/28/23 12/28/23 02:38 03:43 WBC (4.4-10.8) 10^3/uL 6.76 RBC (4.36-5.78) 10^6/uL 5.15 Hgb (13.5-17.5) g/dL 14.8 Hct (40.0-50.0) % 45.1 MCV (80-95) fL 88 MCH (27.0-33.0) pg 28.7 MCHC (32.0-36.0) % 32.8 RDW (11.8-14.1) % 13.3 Plt Count (130-400) 10^3/uL 212 MPV (8.0-11.0) fL 8.9 Immature Gran % % 0.3 Neutrophils % % 52.7 Lymphocytes % % 36.1 Monocytes % % 7.5 Eosinophils % % 2.5 Basophils % % 0.9 Nucleated RBC % (0.0-0.3) % 0.0 Absolute Neutrophils (1.2-6.7) 10^3/uL 3.56 Absolute Lymphocytes (1.2-3.4) 10^3/uL 2.44 Absolute Monocytes (0.1-0.8) 10^3/uL 0.51 Absolute Eosinophils (0.0-0.7) 10^3/uL 0.17 Absolute Basophils (0.0-0.2) 10^3/uL 0.06 Sodium (136-145) mmol/L 138 Potassium (3.5-5.1) mmol/L 3.4 L Chloride (98-107) mmol/L 103 Carbon Dioxide (21.0-32.0) mmol/L 28.3 Anion Gap (3-11) mmol/L 6.7 BUN (7-18) mg/dL 18 Creatinine (0.70-1.30) mg/dL 1.6 H Est GFR (CKD-EPI 2020) (mL/min/1.73m2) 55.51 Glucose (74-106) mg/dL 97 Calcium (8.5-10.1) mg/dL 8.9 Magnesium (1.8-2.4) mg/dL 2.2 Total Bilirubin (0.2-1.0) mg/dL 0.44 AST (15-37) U/L 25 ALT (16-63) U/L 38 Alkaline Phosphatase (46-116) U/L 87 Troponin I High Sens (4-76) ng/L < 4 L < 4 L Total Protein (6.4-8.2) g/dL 7.0 Albumin (3.4-5.0) g/dL 3.5 Lipase (16-77) U/L 61 Quality:SDOH Health Related Social Needs: No Data to Display PFSH All Active Problems (Updated 12/28/23 @ 06:09 by Brittany Stringer MD) Vasospastic angina (Acute) Chest pain (Acute) Family history of prostate cancer (Acute) Preventative health care (Acute) Epicondylitis, lateral, left (Acute) Pain, joint, shoulder, right (Acute) Iliotibial band friction syndrome of both knees (Acute) Actinic keratosis (Acute) Disorder of male genital organ (Acute) Gastroesophageal reflux disease without esophagitis (Acute) Coronary artery spasm (Acute) Adjustment disorder with depressed mood (Acute) Nicotine dependence (Acute) Obesity with body mass index 30 or greater (Acute) Chronic iliotibial band syndrome (Acute) Grief at loss of child (Acute) Lateral epicondylitis (Acute) LEFT HUMERUS Testicular discomfort (Acute) Hematospermia (Acute) Epididymal cyst (Acute) Cellulitis of chest wall (Acute) Chronic post-operative pain (Acute) Hernia (Chronic) Follow-up surgery care (Acute) TIMA (obstructive sleep apnea) (Chronic) Coronary vasospasm (Chronic) History of tobacco use (Chronic) GERD (gastroesophageal reflux disease) (Chronic) Iliotibial band syndrome, right leg (Chronic) Insomnia (Chronic) Actinic keratitis (Chronic) head Globus sensation (Chronic) Neck pain (Chronic) Medical History Tobacco use Chest pain Severe obesity (BMI >= 40) Surgical History History of right inguinal hernia repair Dr Alston Family History Father Prostate cancer Social History Smoking/Tobacco Use Status: Never Smoking risk assessment performed?: Yes Alcohol Intake: current Alcohol Intake frequency: holidays/special occasions only Alcohol type: hard liquor Drug use: Rarely Substance use type: marijuana Adopted: No Household members: significant other and children Housing: apartment Number of Children: 2 Education Level: high school Do you need help understanding health information?: Often Pets and animals: Yes Sexually active: Yes Do you think of yourself as: straight/heterosexual Current gender identity: male What is your relationship status?: living with partner How often do you talk on the phone with friends or family?: three or more times per week How often do you get together with friends or relatives?: three or more times per week Do you belong to any clubs or organized social groups?: no Panel score (0-1 are the most socially isolated patients): 2 What type of physical activity do you participate in: none Lisa/[employer] Special lisa needs: No Seatbelt use: never Helmet use: No 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
[2023-12-28] MEDS: Aspirin 81 MG CHEW 324 MG CH (03:09)
[2023-12-28] MEDS: Potassium Chloride Liquid 20 MEQ PKT 40 MEQ PO (03:12)
--- NOTE | 2023-12-28 04:00 | RT.EKG_ITS ---
APPROVED REPORT Exam: Resting ECG Reason for Exam: chest pain Patient Location: E HR:53 bpm ECG Measurements Heart Rate [address] 168 P 7 QRSd 104 QRS 7 QT 423 T 10 QTc 397 Conclusion Slow sinus arrhythmia...V-rate 44- 60, mean< [address] segment or T wave abnormalities to suggest occlusive [place]
[2023-12-28 04:04] LABS: Troponin I < 4 ng/L (4-76)
--- NOTE | 2023-12-28 04:20 | DI.VRAD_ITS ---
PROCEDURE INFORMATION: Exam: XR Chest Exam date and time: 12/28/2023 3:47 AM Age: 38 years old Clinical indication: Left-sided; Patient HX: Chest pain TECHNIQUE: Imaging protocol: Radiologic exam of the chest. Views: 2 views. COMPARISON: No relevant prior studies are available for comparison. FINDINGS: Lungs: No focal consolidation seen. Pleural spaces: No large pleural effusion seen. Heart/Mediastinum: No cardiomegaly. Bones/joints: No acute abnormality. IMPRESSION: No acute findings to explain reported symptoms. Dictated and Authenticated by: Julia Membreno MD. Ordering:ISABELLA Soto MD
[2023-12-28 06:12] LABS: Troponin I 4 ng/L (4-76)
== END 2023-12-28 06:34 | disposition home or self-care (01) ==
PROVIDERS: Emergency Provider Student in an Organized Health Care Education/Training Program; PCP Nurse Practitioner Family
DX: R07.9 Chest pain, unspecified (principal); I20.1 Angina pectoris with documented spasm
CPT/HCPCS: 36415; 80053; 83690; 93005; 99284; 71046; 83735; 84484; 85025; 93010; 99283

== ENCOUNTER 2024-02-04 00:41 | Outpatient (CLI) | payer MEDICAID, SELFPAY ==
[2024-02-04 09:12] LABS: CREATININE 1.4 mg/dL (0.70-1.30); Estimated GFR 64.76 (mL/min/1.73m2)
[2024-02-04] MEDS: Omnipaque 350 MG/ML 100 ML BTL IJ (09:27)
[2024-02-04] MEDS: Normal Saline - Diluent 50 ML VIAL IJ ×2 (09:31→09:32)
--- NOTE | 2024-02-04 09:50 | DI.CT_ITS ---
Exam(s) CT ABDOMEN PELVIS WO/W EXAM: CT ABDOMEN PELVIS WO/W CLINICAL HISTORY: gross hematuria,r31.9 TECHNIQUE: Imaging Protocol: Axial computed tomography images with coronal and sagittal reformatted images were created and reviewed. CONTRAST MATERIAL: Intravenous: Omnipaque 350 Contrast volume:100 mL Oral: No COMPARISON: CT CT renal colic wo from 09/03/2018 FINDINGS: ABDOMEN: Lung Bases: There is a 2 mm noncalcified pulmonary nodule in the lateral aspect of the right lower lo be (series 15, image 6). Liver: Normal density. No measurable mass. Portal, Superior Mesenteric, and Splenic Veins: Unremarkable. Gallbladder and Biliary Tract: No radiodense calculus or dilation. Pancreas: Normal density, no abnormal calcifications or inflammatory process. Spleen: Normal. Adrenals: No masses seen. Kidneys: Normal size, contour and axis. No radiodense stones or obstructive uropathy. No masses seen. Abdominal Aorta: Abdominal portion non-dilated. Bowel: No obstruction or bowel wall thickening. Appendix is unremarkable. Peritoneal Cavity: No ascites, collection or mesenteric inflammatory response. No free air. Lymph Nodes: Within normal limits. Bones: Within normal limits for the patient's age. There is L5 spondylolysis bilaterally without dayami dence of spondylolisthesis. Soft Tissues: Unremarkable. PELVIS: Bladder: There is incomplete distension of the urinary bladder but no gross abnormality is identified . Reproductive Organs: Unremarkable as visualized. Lymph Nodes: Within normal limits. Bones: Within normal limits for the patient's age. IMPRESSION: 1. No evidence of nephrolithiasis or hydronephrosis. 2. Incomplete distension of the urinary bladder, but no gross abnormalities identified. 3. No evidence of a renal mass. 4. 2 mm noncalcified right lower lobe pulmonary nodule. Single solid noncalcified nodules. ???Solid nodules smaller than 6 mm (those 5 mm or smaller) do not require routine follow-up in patients at low risk (grade 1C; strong recommendation, low- or very-low- quality evidence). (Yara et al., 2017) Solid nodules smaller than 6 mm do not require routine follow-up in all patients with high clinical r isk; however, some nodules smaller than 6 mm with suspicious morphology, upper lobe location, or both may warrant follow-up at 12 months (grade 2A; weak recommendation, high-quality evidence). (Yara et al., 2017) RADIATION DOSE DELIVERED: 2,667.29mGy.cm Total DLP 2,667.29mGy.cm Total DLP DATA REPOSITORY: All CT scans at this facility are submitted to the National Radiology Data Registry (NRDR) Dose Index Registry (DIR) with the [employer] (ACR). RADIATION OPTIMIZATION: All CT scans at this facility use at least one of these dose optimization te chniques: automated exposure control; mA and/or kV adjustment per patient size (includes targeted exa ms where dose is matched to clinical indication); or iterative reconstruction.
== END 2024-02-04 01:01 ==
PROVIDERS: Nurse Practitioner Gerontology; PCP Nurse Practitioner Family; Visit Provider Nurse Practitioner Family
DX: R31.9 Hematuria, unspecified (principal); R91.8 Other nonspecific abnormal finding of lung field
CPT/HCPCS: 74178; 82565; J3490

== ENCOUNTER 2024-09-13 10:21 | Outpatient (CLI) | payer MEDICAID, SELFPAY ==
--- NOTE | 2024-09-13 10:15 | RT.EKG_ITS ---
APPROVED REPORT Exam: Resting ECG Reason for Exam: chest pain this AM. took ntg w/relief Patient Location: O HR:72 bpm ECG Measurements Heart Rate 72 AXIS [place] 170 P 10 QRSd 102 QRS 4 QT 405 T 19 QTc 444 Conclusion Sinus rhythm...normal P axis, V-rate 50- 99 Normal Electrocardiogram
== END 2024-09-13 10:22 | disposition home or self-care (01) ==
LOC: DI.KIM 10:24
PROVIDERS: PCP Nurse Practitioner Family; Visit Provider Nurse Practitioner Family
DX: R07.9 Chest pain, unspecified (principal)
CPT/HCPCS: 93010

== ENCOUNTER 2025-01-24 10:01 | Day surgery (SDC) | payer MEDICAID, SELFPAY ==
--- NOTE | 2025-01-24 07:17 | W.PM.DSUDISC ---
Date of service: 01/24/25 Discharge Plan Disposition Patient Disposition: Home Condition: Good Discharge Details Reason For Visit: Left hand Dupuytrens Attending Provider: Avery Dubois Primary Care Provider: Elida Trammell Home Meds and New Rx's Prescriptions: New hydrocodone-acetaminophen 5-325 mg tablet 1 tab PO Q6H PRN (Reason: severe pain) Qty: 6 0RF Rx Instructions: Take one tablet up to every 6 hours as needed for severe postoperative pain Continued acetaminophen [Arthritis Pain Relief (acetam)] 650 mg tablet extended release 1,300 mg PO Q12H PRN (Reason: pain) nitroglycerin [Nitrostat] 0.4 mg tablet, sublingual 0.4 mg sublingual Q5M PRN (Reason: chest pain) Qty: 30 8RF Rx Instructions: do not exceed 3 doses per episode Discharge Instructions Additional Instructions: Dupuytren's Contracture Discharge Instructions Activity: You may use your fingers for light activity. You should limit any excessive motion or forceful gripping until the sutures have been removed. Dressings: You should keep the initial surgical dressing and splint in place until your follow-up visit. You should keep the dressings and the wound clean at all times. You may keep the initial dressing in place until your follow-up but keep the wound covered with light gauze until the sutures are removed. Medications: - You should take Tylenol and Ibuprofen around the clock as prescribed or per press service reader's recommendations. - You have Hydrocodone prescribed for breakthrough pain control. Take only as needed and limit use as much as possible. This may cause constipation. Follow-up: 7-10 days for wound check and suture removal. Stand Alone Forms: Silvino Webb Finger ReleaseNina (DSU) Referrals: Avery Dubois MD [ [facility] STAFF PHYSICIAN, Orthopaedic Surgical] Equipment/Supplies: Splint Activity:: Elevate Remove Dressings/Wound Care:: 72 hours Shower/Bathe:: 72 hours Diet:: As Tolerated Discharge Orders Discharge Orders: Discharge Order (Routine); Ordered 01/24/25 Ordered By: Kavita Maldonado Discharge Data Discharge Date/Time-TO BE ENTERED AT DEPARTURE: 01/24/25 13:16
[2025-01-24 10:20] VITALS: BP 134/82; PULSE 81; RESP 20; TEMP 37.1; O2SAT 98
[2025-01-24] MEDS: Ciprofloxacin 500 MG TAB PO (10:25)
[2025-01-24] MEDS: Sodium Bicarbonate 50 MEQ/50 ML VIAL (12:17)
[2025-01-24] MEDS: Lidocaine 1% Multi-Dose W/EPI 1/100,000 50 ML VIAL (12:18)
[2025-01-24] MEDS: Lidocaine 1% Pres-Free W/EPI 1/200,000 10 ML VIAL (12:18)
[2025-01-24 13:10] VITALS: BP 113/94; PULSE 73; RESP 20; O2SAT 97
--- NOTE | 2025-01-24 13:21 | W.PM.OP ---
Operative Note Operative Note PRE-OP DIAGNOSIS: Left Dupuytren's Contracture, Involving Ring and Little Fingers POST-OP DIAGNOSIS: same PROCEDURE: Partial palmar fasciectomy of the left hand, including the little finger SURGEON: Avery Dubois ANESTHESIA TYPE: Local By Surgeon Refer to Anesthesia Record ESTIMATED BLOOD LOSS: 10 PATHOLOGY: none sent COMPLICATIONS: None Patient was transported to: same day Patient's condition: stable Indications: I have seen Malik in clinic for symptoms of a finger contracture, consistent with Dupuytren's. Given the amount of contracture I recommend proceeding with partial or fasciectomy. I reviewed the risks of the procedure to include, but not limited to, bleeding, infection, pain, stiffness, damage to nerves or vessels, continued catching, recurrence. Despite these risks, the patient elected to proceed. Findings: There was a primary pretendinous and central cord of the little finger which was able to release the contracture of the MCP and PIP joint. Transection of a pretendinous cord to the ring finger within the palm incision also improve the MCP range of motion. Procedure Description: Malik was greeted in the preoperative holding area where the correct side was identified and marked. The consent was reviewed with the patient and signed. All questions were answered. He was taken back to the operating room. The patient was placed into the supine position on the operating room table with the left arm on an arm board. All bony prominences were well padded. No prophylactic antibiotics were administered since this was a clean, elective hand surgical case. The left arm was then prepped with Chloraprep and draped in a standard fashion with stockinette and extremity drape. A timeout to confirm correct identity, side and site, procedure, allergies, anesthesia, and medical concerns was performed. The surgical site was marked as a Beth type incision extending from the base of the palm ulnarly, over to the ring finger ray and then back to the ulnar aspect of the MCP flexion crease and onto the base of the little finger. The surgical site was then anesthetized with 1% lidocaine with epinephrine, buffered with sodium bicarbonate. The patient tolerated this well and once the anesthetic had setup, the procedure began. The skin was incised sharply. There was significant contracture within the palm and at the base of the finger which required the skin to be peeled off of the underlying cord. This was done with a Clayton blade. The skin was then fully opened up to expose the cord from the base of the palm onto the proximal aspect of the little finger. The pretendinous cord was then transected proximally and elevated out of the wound. Adhesions and connections to it were transected. At the level of the A1 duncan was also transected. A deeper central cord was identified as a primary component for the PIP contracture. The MCP contracture was now back to 0. The central cord was identified and this was also transected which immediately improved the PIP motion. Manual manipulation of the finger then was able to further extend the MCP joint PIP joint. Some areas of tethered skin were released and the wound was once again inspected and showed no significant contracture. The far radial aspect of the wound was then further elevated exposing a pretendinous cord to the ring finger. This was dissected off of the overlying skin. A section of this cord was then transected which immediately improved the MCP motion of the ring finger. The finger was manipulated which helped separate the cord. Finger range of motion was once again tested and showed full passive extension. The wound was then irrigated and the skin was closed with a 4-0 Nylon. This was dressed with gauze and a Conform dressing with an AlumaFoam splint to hold the fingers in extension. The patient tolerated the procedure well and was returned to the Same Day Surgery area in a stable condition suffering no known complication. Date of Procedure: 01/24/25
== END 2025-01-24 13:16 | disposition home or self-care (01) ==
LOC: SUR 10:02
PROVIDERS: PCP Nurse Practitioner Family; Visit Provider Student in an Organized Health Care Education/Training Program
PROC: (CPT 26123; principal; 2025-01-24 13:00)
DX: M72.0 Palmar fascial fibromatosis [Dupuytren] (principal)
CPT/HCPCS: 26123; J2004